=== PATIENT | male | born 1935 | race Caucasian/White ===

== ENCOUNTER 2017-06-21 12:16 | Emergency (ER) | payer OTHER ==
[2017-06-21 12:27] VITALS: TEMP 97.7
--- NOTE | 2017-06-21 12:48 | EDPHY ---
H & P Time Seen by Provider: 06/21/17 12:32 HPI/ROS: HPI Right shoulder pain. 81-year-old male by private vehicle with his . This patient woke up at 1: 30 a.m. with what he describes as a positional and movement induced pain in his right lateral superior shoulder. He reports he was playing golf on Sunday. He had no issues with the right shoulder at that time. He reports last night before he went to bed he had no problem moving the right shoulder. He is on Coumadin for atrial fibrillation. No chest pain. No shortness of breath. He does describe having some subtle tingling in the tips of digits 3 and 4 on the right hand. He denies any loss of sensation or weakness in the right upper extremity. He reports the pain is worse with flexion movement and AB duction. Pain described as sharp and stabbing in the anterior superior lateral aspect of the right shoulder ROS: Constitutional: No fever, no chills. No weakness. ENT: No sore throat. No nasal congestion or rhinorrhea. Respiratory: No cough. No shortness of breath. Cardiac: No chest pain, no palpitations. Gastrointestinal: No abdominal pain, no vomiting, no diarrhea. Musculoskeletal: No back pain. No neck pain. As above. He denies other extremity pain. Skin: No rashes. Neurological: No headache. No focal weakness or altered sensation. Past medical history: Bladder cancer with history of chemotherapy, hypertension , prostate surgery, atrial fibrillation on Coumadin, knee surgery. Social history: Nonsmoker. No alcohol. Here by himself. Physical Exam: General Appearance: Alert, no distress. This patient is responding to questions appropriately and in full sentences. This patient appears well- hydrated and well-nourished. Eyes: Pupils equal and round no pallor or injection. No lid edema, erythema or injection. Right shoulder exam: The right hand appears to be slightly edematous and larger than the left hand on gross inspection. The right upper extremity is neurovascularly intact. No swelling, edema, ecchymosis noted on gross inspection of the right shoulder. There is no deformity or asymmetry noted on gross inspection of the right shoulder in comparison to the left shoulder. He does not have significant pain with extension. He does have pain with flexion of the right arm when he gets to about 45 degrees. He has the same pain induced with AB duction at 45 degrees as well. Neurological: Motor sensory function is grossly intact. Cranial nerves are normal. Gait is normal. Skin: Warm and dry, no rashes. Musculoskeletal: Neck is supple and nontender. No pain on flexion of the neck. No midline cervical, thoracic, lumbar tenderness on palpation. Extremities are symmetrical. All joints range without pain or impingement. Psychiatric: No agitation. No depression. Database: EKG: Imaging: Chest x-ray AP portable; the cardiac mediastinal silhouette is unremarkable. No evidence of infiltrate or pneumothorax. No acute cardiopulmonary disease process noted. Interpreted by me. Right shoulder x-ray series; negative for fracture, subluxation, dislocation. Reviewed with staff radiologist Dr. Vinay Villar. Right upper extremity ultrasound; negative for DVT. Results were discussed with staff radiologist Dr. Vinay Villar. Procedures: Emergency department course: Patient given 2 Jefferson tablets after my evaluation. He is on Coumadin, NSAIDs are contraindicated. The patient's presentation is consistent with an adhesive capsulitis or a rotator cuff injury. Fracture, subluxation, dislocation also possible. I feel that acute coronary syndrome is very unlikely as a source. Patient's pain is purely positionally and motion associated. 1:55 p.m., patient's blood work reviewed. He is appropriately anticoagulated with an INR of 2.85. 2:10 p.m., results of patient's diagnostic studies discussed with him. Plan will be to obtain an MRI of his right shoulder without contrast to evaluate for possible rotator cuff injury versus adhesive capsulitis. I spoke with his primary care physician Dr. Horan. He will follow up on the results of the MRI and with the patient regarding further management. MRI has been scheduled for tomorrow morning. 2:20 p.m., this plan of management was discussed with the patient. Results of all of his diagnostic studies reviewed. He is clear on his follow-up. He is scheduled for his MRI at [facility] at 10:00 a.m. tomorrow. Return to emergency department precautions reviewed with the patient. All of his questions were answered. He was placed in a right shoulder sling for comfort. Rotational range of motion exercises were discussed with him. I explained I did not want the right upper extremity in the sling for more than an hour at a time. He understands this. I will prescribe him Vicodin and stool softeners for pain control. The patient was discharged home in good condition. His is driving. Differential Diagnosis: The differential diagnosis on this patient includes but is not limited to adhesive capsulitis. Acute coronary syndrome, Pancoast tumor, brachial plexus syndrome, acute fracture subluxation, pathologic fracture, dislocation unlikely. This represents a partial list of diagnoses considered. These considerations are based on history, physical exam, past history, reassessment and diagnostic testing. Smoking Status: Light smoker Constitutional: Initial Vital Signs Temperature (C) 36.5 C 06/21/17 12:21 Heart Rate 69 06/21/17 12:21 Respiratory Rate 18 06/21/17 12:21 Blood Pressure 155/72 H 06/21/17 12:21 O2 Sat (%) 98 06/21/17 12:21 O2 Delivery Mode Room Air Allergies/Adverse Reactions: No Known Allergies Allergy (Verified 05/29/16 16:40) Home Medications: Medication Instructions Recorded Baby Aspirin 07/27/13 Fish Oil 07/27/13 Lisinopril 07/27/13 Warfarin Sodium 07/27/13 Atorvastatin Calcium [Lipitor 10 03/17/15 mg (*)] Allopurinol 05/29/16 Amlodipine Besylate 05/29/16 Lovenox 05/29/16 Docusate Sodium [Colace 100 MG (*)] 100 mg PO TID #20 cap 06/21/17 Hydrocodone/APAP 5/325 [Jefferson 1 - 2 tab PO Q4-6PRN PRN #14 tab 06/21/17 5/325 (*)] Medical Decision Making - Diagnostics Imaging Results: Imaging Impressions Chest X-Ray 06/21/17 12:34 Impression: 1. Mild cardiomegaly without decompensation. 2. Abnormal skeleton. Please see the right shoulder x-ray report. On a CT in November 2014 the patient had an abnormal urinary bladder urothelial lesion. Was that ever attended to? A message was left with Ralene for Dr. Barahona at 1:37 PM. Shoulder X-Ray 06/21/17 12:34 Impression: 1. Unusual bone ossification pattern. Is there history of cancer? Does the patient have an elevated PSA or abnormal bone alkaline phosphatase? If clinically indicated this patient might benefit from a nuclear medicine whole- body bone scan. 2. No intrinsic shoulder pathology identified other than a possible sclerotic lesion in the subglenoid right scapula. Results discussed with Dr. Barahona. Extremity Venous Study 06/21/17 12:43 Impression: No evidence of vein thrombosis in the right arm. Results called to Dr. Barahona. - Data Points Laboratory Results: Laboratory Results 06/21/17 12:43 06/21/17 12:43 06/21/17 06/21/17 06/21/17 12:43 12:43 12:43 WBC 10.73 10^3/uL H 10^3/uL (3.80-9.50) RBC 5.30 10^6/uL 10^6/uL (4.40-6.38) Hgb 17.0 g/dL g/dL (13.7-17.5) Hct 50.1 % % (40.0-51.0) MCV 94.5 fL fL (81.5-99.8) MCH 32.1 pg pg (27.9-34.1) MCHC 33.9 g/dL g/dL (32.4-36.7) RDW 14.8 % % (11.5-15.2) Plt Count 170 10^3/uL 10^3/uL (150-400) MPV 11.5 fL fL (8.7-11.7) Neut % (Auto) 78.6 % H % (39.3-74.2) Lymph % (Auto) 9.4 % L % (15.0-45.0) Snyder % (Auto) 9.9 % % (4.5-13.0) Eos % (Auto) 1.4 % % (0.6-7.6) Baso % (Auto) 0.4 % % (0.3-1.7) Nucleat RBC Rel Count 0.0 % % (0.0-0.2) Absolute Neuts (auto) 8.44 10^3/uL H 10^3/uL (1.70-6.50) Absolute Lymphs (auto) 1.01 10^3/uL 10^3/uL (1.00-3.00) Absolute Monos (auto) 1.06 10^3/uL H 10^3/uL (0.30-0.80) Absolute Eos (auto) 0.15 10^3/uL 10^3/uL (0.03-0.40) Absolute Basos (auto) 0.04 10^3/uL 10^3/uL (0.02-0.10) Absolute Nucleated RBC 0.00 10^3/uL 10^3/uL (0-0.01) Immature Gran % 0.3 % % (0.0-1.1) Immature Gran # 0.03 10^3/uL 10^3/uL (0.00-0.10) PT 29.8 SEC H SEC (12.0-15.0) INR 2.85 H (0.83-1.16) APTT 39.8 SEC H SEC (23.0-38.0) Sodium 138 mEq/L mEq/L (134-144) Potassium 4.5 mEq/L mEq/L (3.5-5.2) Chloride 102 mEq/L mEq/L (97-110) Carbon Dioxide 23 mEq/l mEq/l (22-31) Anion Gap 13 mEq/L mEq/L (8-16) BUN 24 mg/dL H mg/dL (7-23) Creatinine 1.3 mg/dL mg/dL (0.7-1.3) Estimated GFR 53 Glucose 164 mg/dL H mg/dL (70-100) Calcium 9.1 mg/dL mg/dL (8.5-10.4) Medications Given: Discontinued Medications Hydrocodone Bitart/Acetaminophen (Jefferson 5/325) 2 tab PO EDNOW ONE Stop: 06/21/17 13:04 Last Admin: 06/21/17 13:13 Dose: 2 tab Departure - Departure Disposition: Home, Routine, Self-Care Clinical Impression: Right shoulder pain Condition: Good Instructions: Adhesive Capsulitis (ED), Shoulder Pain (ED) Additional Instructions: Read and follow provided instructions. Go to [facility] on the corner of [address] [facility] [address] [facility] tomorrow at 10:00 a.m. for your MRI appointment. Arrive a half an hour early. Follow-up with your primary care physician tomorrow for results. Dr. Horan will be informed of the results of your MRI. The results should be available tomorrow afternoon. Jefferson/Percocet dosin-2 every 4-[address] for [address] not drive on this medication. Return to the emergency department for worsening pain, fever, loss of sensation , weakness or other serious concerns. Referrals: Sunday Vilchis MD [Primary Care Provider] - As per Instructions Madyson Horan MD [Medical Doctor] - As per Instructions Prescriptions: Docusate Sodium [Colace 100 MG (*)] 100 mg PO TID #20 cap Hydrocodone/APAP 5/325 [Jefferson 5/325 (*)] 1 - 2 tab PO Q4-6PRN PRN #14 tab PRN Reason: Pain, Moderate
[2017-06-21 12:57] LABS: % IMMATURE GRANULYOCYTES 0.3 % (0.0-1.1); ABSOLUTE IMMATURE GRANULOCYTES 0.03 10^3/uL (0.00-0.10); ADD DIFF? NO; ADD MORPH? NO; ADD SCAN? NO; ATYPICAL LYMPHOCYTE FLAG 0 (0-99); FRAGMENT RBC FLAG 0 (0-99); HEMATOCRIT 50.1 % (40.0-51.0); LEFT SHIFT FLG 0 (0-99); LIPEMIA HEMOLYSIS FLAG 90 (0-99); MEAN CELL HEMOGLOBIN 32.1 pg (27.9-34.1); MEAN CELL HEMOGLOBIN CONCENTR. 33.9 g/dL (32.4-36.7); MEAN CELL VOLUME 94.5 fL (81.5-99.8); MEAN PLATELET VOLUME 11.5 fL (8.7-11.7); PLATELET CLUMPS FLAG 0 (0-99); PLATELET COUNT 170 10^3/uL (150-400); RED CELL DISTRIBUTION WIDTH 14.8 % (11.5-15.2)
[2017-06-21] MEDS ORDERED: HYDROCODONE/APAP 5/325 TAB PO ONE (13:03)
[2017-06-21 13:13] LABS: APTT 39.8 SEC (23.0-38.0); INR 2.85 (0.83-1.16); PROTIME(PATIENT) 29.8 SEC (12.0-15.0)
[2017-06-21 14:15] LABS: CALCIUM 9.1 mg/dL (8.5-10.4); CREATININE 1.3 mg/dL (0.7-1.3); POTASSIUM 4.5 mEq/L (3.5-5.2)
[2017-06-21 14:31] VITALS: BP 141/86; PULSE 73; RESP 16; O2SAT 96
== END 2017-06-21 14:25 | disposition home or self-care (01) ==
LOC: CED 12:16
DX: M25.511 Pain in right shoulder (principal); I10 Essential (primary) hypertension; F17.200 Nicotine dependence, unspecified, uncomplicated; Z79.01 Long term (current) use of anticoagulants; Z85.51 Personal history of malignant neoplasm of bladder
CPT/HCPCS: 71010; 73030; 93971; 99285; A4565; 80048-PO; 85025-PO; 85610-PO; 85730-PO

== ENCOUNTER → 2017-06-22 | Outpatient (CLI) | payer OTHER | LOC: FIMAGING 09:58 | PROVIDERS: ATTEND Emergency Medicine | DX: M75.21 Bicipital tendinitis, right shoulder (principal); S46.811A Strain of other muscles, fascia and tendons at shoulder and upper arm level, right arm, initial encounter; M25.811 Other specified joint disorders, right shoulder ==

== ENCOUNTER 2018-01-31 09:10 | Day surgery (SDC) | payer OTHER ==
--- NOTE | 2018-01-30 18:36 | GHP ---
[f rep st] PREOP HISTORY AND PHYSICAL ADMISSION DIAGNOSIS: Bladder tumor. HISTORY OF PRESENT ILLNESS: This is a gentleman who has had a history of prostate cancer and other malignancies and, on cystoscopy, he has this abnormal finding in the bladder. Would recommend he undergo TUR of the lesion. Indications, complications, risks have been discussed. Written and verbal consent was obtained. He is admitted for the above procedure. As noted, he had prior bladder cancer and underwent BCG which was completed 2015. PAST MEDICAL HISTORY: Bladder cancer, urinary retention, prostate cancer. PAST SURGICAL HISTORY: Appendectomy, prostate and bladder tumor. MEDICATIONS: Include allopurinol, aspirin, atorvastatin, warfarin. ALLERGIES: None. PHYSICAL EXAMINATION: VITAL SIGNS: Stable. CHEST: Clear. HEART: Regular rate and rhythm. ABDOMEN: Normal. No organomegaly, rebound, or guarding. EXTREMITIES: Lower extremities are normal. PLAN: He is admitted for the above procedure. /[id number]/MODL MTDD
--- NOTE | 2018-01-31 06:51 | PDHPUP ---
History & Physical Update H&P update statement: This history and physical update is based on an assessment of the patient which was completed after admission or registration (within 24 hours), but prior to the surgery/procedure. H&P update: H&P reviewed & patient examined, no change in patient's condition since H&P completed
[~2018-01-31 09:10] MED LIST: ceFAZolin 2 GM/SWFI 2 GM/20 ML SYR IVP ONE
[2018-01-31] MEDS ORDERED: LR 1,000 ML IV ONE (09:22)
[2018-01-31] MEDS ORDERED: ceFAZolin 2 GM/SWFI 20 ML SYR IVP ONE (09:55)
[2018-01-31 10:02] LABS: INR 1.06 (0.83-1.16)
[2018-01-31] MEDS ORDERED: LIDOCAINE 2% JELLY 20 ML (UROJECT) ONE (10:16)
--- NOTE | 2018-01-31 10:25 | PDANEPAE ---
ANE Past Medical History - Cardiovascular History Hx Hypertension: Yes Hx Arrhythmias: Yes Hx Chest Pain: No Hx Coronary Artery / Peripheral Vascular Disease: Yes Hx CHF / Valvular Disease: No Hx Palpitations: No Cardiovascular History Comment: AFIB. CHRONIC ISCHEMIC HEART DISEASE. STENTS X2 2004. HYPERCHOLESTEROLEMIA - Pulmonary History Hx COPD: No Hx Asthma/Reactive Airway Disease: No Hx Recent Upper Respiratory Infection: No Hx Oxygen in Use at Home: No Hx Sleep Apnea: No Sleep Apnea Screening Result - Last Documented: Positive Pulmonary History Comment: smoker x 65-70yrs. Denies COPD, currently smokes 1/2 to 3/4 ppd - Neurologic History Hx Cerebrovascular Accident: No Hx Seizures: No Hx Dementia: No - Endocrine History Hx Diabetes: No Hypothyroid: No Hyperthyroid: No Obesity: no - Renal History Hx Renal Disorders: No Renal History Comment: HX PROSTATE CA. BLADDER CA - Liver History Hx Hepatic Disorders: No - Neurological & Psychiatric Hx Hx Neurological and Psychiatric Disorders: No - Cancer History Hx Cancer: No Cancer History Comment: BLADDER CANCER- BCG. PROSTATE CA - Congenital Disorder History Hx Congenital Disorders: No - GI History GERD: no Hx Gastrointestinal Disorders: No - Other Health History Other Health History: BRUISE EASY-on Coumadin;. Hx GOUT - Chronic Pain History Chronic Pain: No - Surgical History Prior Surgeries: TURBT X2. ARTHROSCOPIC R & L KNEES. CARDIAC STENTS X 2 2003. APPENDECTOMY. PROSTATE REMOVED ' ANE Review of Systems Review of Systems: - Exercise capacity METS (RN): 4 METS ANE Patient History - Allergies Allergies/Adverse Reactions: No Known Allergies Allergy (Verified 01/15/18 12:30) - Home Medications Home Medications: Baby Aspirin 07/27/13 [Last Taken 1 Week Ago ~01/24/18] Fish Oil 07/27/13 [Last Taken 1 Week Ago ~01/24/18] Lisinopril 07/27/13 [Last Taken 01/30/18] Warfarin Sodium 07/27/13 [Last Taken 01/27/18] Atorvastatin Calcium [Lipitor 10 mg (*)] 03/17/15 [Last Taken 01/30/18] Allopurinol 05/29/16 [Last Taken 01/30/18] Amlodipine Besylate 05/29/16 [Last Taken 01/31/18] Lovenox 05/29/16 [Last Taken 01/30/18] - NPO status NPO Since - Liquids (Date): 01/31/18 NPO Since - Liquids (Time): 07:00 NPO Since - Solids (Date): 01/30/18 NPO Since - Solids (Time): 19:00 - Smoking Hx Smoking Status: Heavy smoker - Family Anes Hx Family Hx Anesthesia Complications: NONE ANE Labs/Vital Signs - Vital Signs Blood Pressure: 179/98 Heart Rate: 87 Respiratory Rate: 16 O2 Sat (%): 95 Height: 185.42 cm Weight: 77.111 kg ANE Physical Exam - Airway Neck exam: decreased ROM Mallampati Score: Class 2 Mouth exam: normal dental/mouth exam (Upper front crowns) - Pulmonary Pulmonary: clear to auscultation - Cardiovascular Cardiovascular: irregularly irregular - ASA Status ASA Status: III ANE Anesthesia Plan Anesthesia Plan: GA w LMA
[2018-01-31] MEDS ORDERED: PROPOFOL 200 MG/20 ML VIAL ONE (10:33)
[2018-01-31] MEDS ORDERED: fentaNYL 100 MCG/2 ML INJ ONE (10:33)
[2018-01-31] MEDS ORDERED: DEXAMETHASONE 4 MG/ML VIAL ONE (10:35)
[2018-01-31] MEDS ORDERED: ONDANSETRON 4 MG/2 ML VIAL ONE (11:14)
[2018-01-31] MEDS ORDERED: PHENYLEPHRINE HCL 100 MCG/ML SYR ONE (11:14)
[2018-01-31] MEDS ORDERED: ONDANSETRON 4 MG/2 ML VIAL IVP PRN (11:23)
[2018-01-31] MEDS ORDERED: fentaNYL 100 MCG/2 ML INJ IVP PRN (11:23)
[2018-01-31] MEDS ORDERED: NALOXONE HCL 0.4 MG/ML INJ IVP PRN (11:23)
--- NOTE | 2018-01-31 11:38 | POSTOPPROG ---
Post Op Note Date of Operation: 01/31/18 Surgeon: Bebeto Mae Anesthesiologist: Pako Anesthesia: LMA Pre-op Diagnosis: bladde tumor Procedure: TURBT Inf/Abcess present in the surg proc area at time of surgery?: No EBL: Minimal Drains: Other (thomas) Specimen(s): sent, dictated
[2018-01-31 13:32] VITALS: BP 152/87
--- NOTE | 2018-01-31 14:10 | GOP ---
[f rep st] OPERATIVE REPORT DATE OF OPERATION: 01/31/2018 SURGEON: Bebeto Mae MD PREOPERATIVE DIAGNOSIS: Bladder cancer. POSTOPERATIVE DIAGNOSIS: Bladder cancer. PROCEDURE PERFORMED: Transurethral resection of bladder tumor. FINDINGS: Bladder lesion of dome of bladder DESCRIPTION OF PROCEDURE: The gentleman underwent general anesthesia, was prepped and draped in normal sterile fashion in dorsal lithotomy position. The urethra was normal. Prostate absent. Bladder lesion was at the dome of the bladder. I did cold cup biopsies of the lesion for permanent sections and those were as deep as I felt to be done and then, at that point, cauterized and resected the area in total. There was an approximately 1-1/2 to 2 cm base of the lesion. There was no perforation of the bladder, but the bladder was thin, so the remaining part of the bladder was visualized and, at the end urine was clear. There was no bleeding from the biopsy resection site. Then, Uro-jet placed in urethra, a 20-Hungarian catheter placed and he will be discharged home with a catheter and have it removed on Sunday. The specimen sent for pathologic assessment. No complications encountered. /[id number]/MODL MTDD
--- NOTE | 2018-01-31 19:58 | POSTANESTH ---
Post Anesthetic Evaluation Cardiovascular Status: Similar to Pre-Op Cond Respiratory Status: Normal, Stable Level of Consciousness/Mental Status: Can Participate in Eval Pain Control: Adequate, Prn Tx Ordered Nausea/Vomiting Control: Adequate, Prn Tx Ordered Complications Possibly Related to Anesthesia: None Noted
== END 2018-01-31 13:30 | disposition home or self-care (01) ==
LOC: FSGY 09:10
PROVIDERS: ATTEND Specialist
PROC: 0TBB8ZZ Excision of Bladder, Via Natural or Artificial Opening Endoscopic (ICD-10-PCS; principal; 2018-01-31 10:15)
DX: C67.9 Malignant neoplasm of bladder, unspecified (principal); E78.00 Pure hypercholesterolemia, unspecified; I48.91 Unspecified atrial fibrillation; I25.5 Ischemic cardiomyopathy; F17.210 Nicotine dependence, cigarettes, uncomplicated; Z95.5 Presence of coronary angioplasty implant and graft; Z85.46 Personal history of malignant neoplasm of prostate
CPT/HCPCS: J0690; J1100; J2370; J2405; J2704; J3010

== ENCOUNTER → 2018-07-17 | Outpatient (CLI) | payer OTHER | LOC: CIMAGING 13:46 | PROVIDERS: ATTEND Internal Medicine | DX: J18.1 Lobar pneumonia, unspecified organism (principal); J90 Pleural effusion, not elsewhere classified | CPT/HCPCS: 71046-PO ==

== ENCOUNTER → 2018-08-06 | Outpatient (CLI) | payer OTHER | LOC: CIMAGING 11:36 | PROVIDERS: ATTEND Internal Medicine | DX: J18.1 Lobar pneumonia, unspecified organism (principal); Z95.5 Presence of coronary angioplasty implant and graft | CPT/HCPCS: 71046-PO ==

== ENCOUNTER → 2018-08-27 | Outpatient (CLI) | payer OTHER | LOC: CIMAGING 14:07 | PROVIDERS: ATTEND Internal Medicine | DX: J15.9 Unspecified bacterial pneumonia (principal); N18.9 Chronic kidney disease, unspecified | CPT/HCPCS: 71046-PO ==